=== PATIENT | female | born 2005 | race Caucasian/White ===

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

== ENCOUNTER 2024-08-22 17:16 | Emergency (ER) | payer BC, SELFPAY ==
[2024-08-22 17:16] VITALS: BP 150/78; PULSE 80; RESP 16; TEMP 36.8; O2SAT 99; BMI 26.2
--- NOTE | 2024-08-22 17:27 | EDS_ITS ---
HPI History of Present Illness Chief Complaint: Palpitations Detail of Chief Complaint: Palpitations, viral-like symptoms Informant: patient Onset/Context/Timing Onset: Today and Hours Context: Sudden Onset Timing: Intermittent Quality: Palpitations with heart rate noted to be 110s to 120. Location: Cardiovascular Current Severity: Gone Maximum Severity: Moderate Worsened by: Nothing Relieved by: Nothing Associated Symptoms Associated Symptoms: Patient also has viral-like symptoms. Narrative Narrative: Patient is a 19-year-old female. She has history of sinus pause. This was diagnosed over a year ago. Etiology is unknown. She presents because she had palpitations with heart rate noted to be between 100 1020. She was lying down when this occurred. She had no other associated symptoms i.e. orthostatic, pain or shortness of breath. Patient does endorse mild cough. She also endorses myalgias and some mild congestion. She denies contact with anyone's been ill. Last normal menstrual period was July 25. She is no longer on control pills. She denies breast tenderness, frequency. Prior similar symptoms: Yes Recent Illness/Hospitalization: No [facility] Medical History Sinus pause Home Medications ?Medication ?Instructions ?Recorded ?Last Taken ?Type famotidine 20 mg tablet mg 07/21/23 Unknown History norelgestromin 150 mcg-e.estradiol patch 07/21/23 Unknown History 35 mcg/24 hr weekly transderm patch (Xulane) ondansetron 4 mg disintegrating mg 07/21/23 Unknown History tablet Allergy/AdvReac Type Severity Reaction Status Date / Time No Known Allergies Allergy Verified 08/22/24 17:17 Social History (Updated 08/22/24 @ 17:[address] Cheng Ovalle MD) household members: significant other Smoking Status: Current every day smoker tobacco type: e-cigarettes substance use type: does not use ROS ROS ED Constitutional Constitutional ED: Denies chills Eyes Eyes: Denies blurry vision or change in vision ENT ENT ED: Reports sore throat and other Details: Sore throat noted by nurse and documented on triage assessment. ; Denies ear pain or rhinorrhea Cardiovascular Cardiovascular: Reports palpitations and racing heartbeat; Denies chest pain Respiratory/Chest Respiratory/Chest: Reports cough; Denies dyspnea, dyspnea on exertion or sputum Gastrointestinal Gastrointestinal: Reports nausea; Denies abdominal pain, diarrhea or vomiting Genitourinary Genitourinary ED: Reports LMP (females 10-50) Details: Comment: (July 25.); Denies dysuria, hematuria or urinary frequency Musculoskeletal Musculoskeletal: Reports myalgias; Denies arthralgias, back pain or neck pain Integumentary Denies rash Neurologic Neurologic: Denies headache(s) Hematologic/Lymphatic Hematologic/Lymphatic: Reports systems reviewed and no addt'l complaints, except as documented EXAM Physical Exam Const Vital Signs: 08/22/24 17:16 08/22/24 17:34 Temperature 98.2 F Temperature Source Oral Pulse Rate 80 Respiratory Rate 16 Respiratory Effort Normal Non-Labored Blood Pressure 150/78 H Blood Pressure Mean 102 Pulse Ox 99 Oxygen Delivery Method Room Air Positive well nourished and well developed General Appearance ED: well developed and NAD; Negative for cyanotic, diaphoretic or pallor HEENT HEENT Narrative: Head is atraumatic normocephalic. Ears normal. External auditory canals normal. TMs are normal. Nares patent. Posterior pharynx erythema or exudate. Uvula midline. No deviation with protrusion. Eyes PERRL and EOMs intact bilaterally General Eye ED: Negative for pale conjunctiva or scleral icterus Neck no lymphadenopathy, supple and no JVD Chest Wall inspection of chest normal and palpation of chest normal Chest Narrative: There is a marine noted above her left breast. This is due to the monitor patch she was wearing. Resp normal respiratory effort and clear to auscultation bilaterally Cardio regular rate, regular rhythm, S1 normal heart sound, S2 normal heart sound and no murmurs GI normal to inspection, nondistended, normoactive bowel sounds, non-tender, non- distended and no masses; Negative for hepatosplenomegaly Extremity normal to inspection General Extremety ED: Negative for edema or tenderness General Extremity: Negative for edema Neuro oriented x3 and CN's II-XII intact bilaterally Sensorium / Orientation: alert Psych mental status grossly normal Skin no rashes or lesions noted, no wounds and skin turgor normal General Skin Exam: Negative for jaundice or pallor MDM MDM MDM Narrative Medical decision making narrative: Patient presents with palpitations. This may represent PAT, anxiety reaction. Will place patient on monitor and determine if patient has narrow white count plexus. Also to determine she is in a sinus mechanism and if she has any ectopy or evidence of dysrhythmia. BMP was obtained to assess renal function and electrolytes and specifically potassium. CBC to rule out anemia since she appears pale. Since there was no chest pain shortness of breath troponin was not obtained nor was an EKG. Lab Data Attestation: I reviewed the patient's lab results. Lab results narrative: Basic metabolic panel is unremarkable. Chloride is slightly elevated. Labs: Laboratory Results - last 24 hr 08/22/24 17:40 Sodium 140 Potassium 3.5 Chloride 108 H Carbon Dioxide 25.0 Anion Gap 7 BUN 10 Creatinine 0.68 Estim Creat Clear Calc 107.56 Est GFR (MDRD) Af Amer 140 Est GFR (MDRD) Non-Af 116 BUN/Creatinine Ratio 14.6 Glucose 106 Calcium 8.8 Radiography Chest X-Ray - ED: 2 View, Read by ED Physician (Independently interpreted by me as negative at 1752.), Normal, Heart, Lungs, Mediastinum, Bony Structures and No Acute Disease EKG Initial EKG: Attestation: I personally reviewed and interpreted this EKG as follows: Interpretation: Sinus Rhythm (The EKG is unremarkable. Patient has a normal sinus rhythm rate of 75. AL interval is on a 58 ms. QRS duration 84 ms. QT durations 174 ms. [place] to the right. There is no ischemic changes. There is a premature atrial beat noted.) Treatment and Re-Evaluation :: Patient and significant other were informed of results. Plan is to discharge to home with appropriate home-going structures. Discharge Plan Triage Chief Complaint: Palpitations ED Provider: Cheng Ovalle Dx/Rx/DC Orders Clinical Impression: Tachycardia, Cough Instructions: ED About Arrhythmias, ED Viral Syndrome (Adult) Prescriptions: No Action famotidine 20 mg tablet Patient Comments: TAKE 1 TABLET BY MOUTH EVERY DAY AT BEDTIME NEEDED ondansetron 4 mg tablet,disintegrating Patient Comments: TAKE 1 TABLET BY MOUTH EVERY 8 HOURS NEEDED Xulane 150-35 mcg/24 hr patch weekly Patient Comments: APPLY 1 PATCH DIRECTED ONE TIME A WEEK. USE PATCH CONTINUOUSLY. NO INACTIVE WEEK. Primary Care Provider: Kathi Bernal NP Referrals: Kathi Bernal NP, TUBE ROLLER-C [Primary Care Provider] - 1-2 Weeks Print Language: Luxembourger Disposition Disposition: Home, Self Care
--- NOTE | 2024-08-22 17:35 | EKG12_ITS ---
Test Reason : palps Blood Pressure : */* mmHG Vent. Rate : 75 BPM Atrial Rate : 75 BPM P-R Int : 158 ms QRS Dur : 84 ms QT Int : 374 ms P-R-T Axes : 54 90 66 degrees QTcB Int : 417 ms Normal sinus rhythm Rightward axis Borderline ECG Confirmed by Sean Corea ([id number]), field map editor MILADY BULLARD ([id number]) on 08/23/2024 10:44:51 AM Referred By: Confirmed By: Sean Corea
--- NOTE | 2024-08-22 17:42 | RAD_ITS ---
EXAM: XR CHEST, 2 VIEWS CLINICAL INDICATION: cough TECHNIQUE: Frontal and lateral views of the chest. COMPARISON: 10/22/2023 FINDINGS: LUNGS AND PLEURAL SPACES: Unremarkable. No consolidation or edema. No pneumothorax. No effusion. HEART: Unremarkable. Cardiac silhouette not enlarged. MEDIASTINUM: Central airways and mediastinal contour are unremarkable. BONES/JOINTS: Unremarkable. No acute fracture. SOFT TISSUES: Unremarkable. RAD/Chest PA and Lateral IMPRESSION: No radiographic evidence of acute cardiopulmonary disease. Electronically Signed: Arthur Addison MD at 18:28 EST ,
[2024-08-22 18:06] LABS: Anion Gap 7 (5-15); BUN 10 mg/dL (7-18); BUN/Creat Ratio 14.6 RATIO (10-20); Calcium,Total 8.8 mg/dL (8.5-10.1); Chloride 108 mmol/L (98-107); Creatinine, Serum 0.68 mg/dL (0.55-1.02); EST Glomerular Filtration Rate 116 mL/min (>60); Est Glom Filt Rate - Afr Amer 140 mL/min (>60); Estimated Creatinine Clearance 107.56 ml/min; Glucose 106 mg/dL (74-106); Potassium 3.5 mmol/L (3.5-5.1); Sodium Level 140 mmol/L (136-145)
[2024-08-22 18:26] VITALS: PULSE 83
[2024-08-22 18:32] VITALS: BP 150/78; PULSE 83; RESP 16; TEMP 36.8; O2SAT 99
== END 2024-08-22 18:32 | disposition home or self-care (01) ==
PROVIDERS: Emergency Provider Emergency Medicine; PCP Nurse Practitioner Primary Care; Visit Provider Emergency Medicine
DX: R00.0 Tachycardia, unspecified (principal); R05.9 Cough, unspecified; I49.40 Unspecified premature depolarization; M79.10 Myalgia, unspecified site; R09.81 Nasal congestion; F17.290 Nicotine dependence, other tobacco product, uncomplicated
CPT/HCPCS: 71046; 80048; 93005; 99284; A4216

== ENCOUNTER 2024-09-04 13:57 | Emergency (ER) | payer BC, SELFPAY ==
[2024-09-04 13:57] VITALS: BP 120/81; PULSE 67; RESP 15; TEMP 36.5; O2SAT 99; BMI 26.3
--- NOTE | 2024-09-04 14:50 | EDS_ITS ---
HPI History of Present Illness Chief Complaint: Headache Narrative Narrative: Patient is a 19-year-old female past medical history of sinus pause, depression who presents to the emergency department with a chief complaint of headache. Patient states that she developed a headache on Friday and Friday was gradual onset. Patient denies any head injury or trauma. Patient states that she has not had to take anything for headache. She states that her headache is currently a 6 out of 10 and has remained this for the last several days. Patient states that today she came in because she felt weak and dizzy.. Patient feels like she is confused as well. Denies any recent sick contacts. [facility] Medical History Sinus pause Home Medications ?Medication ?Instructions ?Recorded ?Last Taken ?Type famotidine 20 mg tablet mg 07/21/23 Unknown History norelgestromin 150 mcg-e.estradiol patch 07/21/23 Unknown History 35 mcg/24 hr weekly transderm patch (Xulane) ondansetron 4 mg disintegrating mg 07/21/23 Unknown History tablet fluoxetine 40 mg capsule 40 mg PO DAILY 09/04/24 Unknown History Allergy/AdvReac Type Severity Reaction Status Date / Time No Known Allergies Allergy Verified 09/04/24 13:57 Social History household members: significant other Smoking Status: Current every day smoker tobacco type: e-cigarettes substance use type: does not use ROS ROS ED ROS Narrative Constitutional: Complains of headache as noted above denies any lightheadedness fevers or chills Eyes: Complains of blurry vision denies double vision Cardiovascular: Denies chest pain or palpitations Respiratory: Denies coughing wheezing shortness of breath Abdomen: Denies abdominal pain nausea vomit diarrhea : Denies painful urination, hematuria, or polyuria Neurological: Complains of generalized weakness denies numbness or tingling Musculoskeletal: Denies back pain Skin: Denies rashes or lesions EXAM Physical Exam Narrative Exam Narrative: General: Patient lying in bed rest comfortably did not appear to be acute distress Head: Atraumatic, normocephalic Eyes: PERRL bilateral, EOMI bilateral, no conjunctival injection noted, no vertical or horizontal nystagmus noted on exam Neck: Soft, supple, trachea midline Cardiovascular: Regular rate and rhythm no murmurs gallops rubs noted Respiratory: Clear to auscultation bilaterally no rales rhonchi or wheezes noted Abdomen: Soft, nondistended, nontender to palpation, bowel sounds present x 4 Extremities: +5/5 strength noted in the bilateral upper and lower extremities, no pedal edema noted on exam, radial pulses +2/4 in the bilateral extremities Neurological: Patient following commands knew that she was at [facility] year is 2023. She completed finger-nose test bilaterally without any difficulty. NIH is 0 GCS 15 Skin: Warm, dry, intact Const Vital Signs: 09/04/24 13:57 Temperature 97.7 F L Temperature Source Temporal Pulse Rate 67 Respiratory Rate 15 Blood Pressure 120/81 H Blood Pressure Mean 94 Pulse Ox 99 Oxygen Delivery Method Room Air MDM MDM MDM Narrative Medical decision making narrative: Patient is a 19-year-old female who presents to the emergency department chief complaint of headache, generalized weakness, confusion and dizziness. Patient will have a workup performed here on the differential diagnose includes but not limited to intracranial hemorrhage, migraine headache, complex migraine, . Once workup is obtained reviewed she will be reevaluated. Patient be given IV fluids, Reglan and Zofran. Patient CBC reviewed and showed no evidence leukocytosis white blood count normal at 5.7, hemoglobin stable 12.4, platelet count normal at 363. Patient's CMP is pending. As well as test. On reevaluation the patient she states that she feels much improved and does not want to wait on any other results and is refusing her head CT. Patient states that all her symptoms resolved with the medications prescribed here. Patient ambulated here without any difficulty. Patient took her own IV out here in the emergency department. Patient was advised to return with worsening symptoms or any other concerns. She was advised follow-up with her primary care physician. She is agreeable this plan all question concerns answered she is discharged home in a stable condition. She was advised to rotate Tylenol and ibuprofen for her headache control. Lab Data Labs: Laboratory Results - last 24 hr 09/04/24 14:50 WBC 5.7 RBC 3.95 L Hgb 12.4 Hct 37.0 MCV 93.7 MCH 31.4 MCHC 33.5 RDW Std Deviation 43.8 RDW Coeff of Joycelyn 12.6 Plt Count 363 MPV 8.5 Immature Gran % (Auto) 0.500 Neut % (Auto) 62.1 Lymph % (Auto) 28.9 [place] % (Auto) 6.7 Eos % (Auto) 0.9 Baso % (Auto) 0.9 Absolute Neuts (auto) 3.5 Absolute Lymphs (auto) 1.65 Nucleated RBC % 0 Discharge Plan Triage Chief Complaint: Headache ED Provider: Jose Banegas Dx/Rx/DC Orders Clinical Impression: Headache Instructions: ED Headache Unspecified Prescriptions: No Action famotidine 20 mg tablet Patient Comments: TAKE 1 TABLET BY MOUTH EVERY DAY AT BEDTIME NEEDED ondansetron 4 mg tablet,disintegrating Patient Comments: TAKE 1 TABLET BY MOUTH EVERY 8 HOURS NEEDED Xulane 150-35 mcg/24 hr patch weekly Patient Comments: APPLY 1 PATCH DIRECTED ONE TIME A WEEK. USE PATCH CONTINUOUSLY. NO INACTIVE WEEK. fluoxetine 40 mg capsule 40 mg PO DAILY Primary Care Provider: Kathi Bernal NP Referrals: Kathi Bernal NP, RECORD PRESS SUPERVISOR-C [Primary Care Provider] - Activity Restrictions/Additional Instructions: Return with worsening symptoms or any other concerns. Use Tylenol and ibuprofen for headache control. Remain well-hydrated. Print Language: Yakut Disposition Disposition: Home, Self Care
[2024-09-04] MEDS: Metoclopramide 10 MG/2 ML Vial IV (14:51)
[2024-09-04] MEDS: Acetaminophen 500 MG Tablet 1000 MG PO (14:51)
[2024-09-04] MEDS: 0.9% Normal Saline (1000mL) 1,000 ML 999 ML IV (14:58)
[2024-09-04 15:07] LABS: Absolute Lymphocyte Count 1.65 X10^3/uL (0.83-4.51); Absolute Neutrophil Count 3.5 X10^3/uL (2.0-7.7); Basophil# 0.05 X10^3/uL; Basophil% 0.9 % (0-1); Eosinophil# 0.05 X10^3/uL; Eosinophils% 0.9 % (0-5); Hemoglobin 12.4 g/dL (12.0-15.0); Lymphocyte # 1.65 X10^3/ul (0.83-4.51); Lymphocyte % 28.9 % (19-41); Mean Corp Hgb Conc 33.5 g/dL (32-36); Mean Corpuscular Hgb 31.4 pg (27.0-32.0); Mean Corpuscular Volume 93.7 fL (81-99); Mean Platelet Vol. 8.5 fl (6.2-12.0); Monocyte# 0.38 X10^3/uL; Monocyte% 6.7 % (0-10); NRBC Flagged by Analyzer 0 % (0-5); Neutrophil # 3.54 X10^3/uL (2.7-7.7); Neutrophil % 62.1 % (47-70); Platelet Count 363 K/mm3 (150-450); RBC Distribution Width CV 12.6 % (11.6-14.6); RBC Distribution Width SD 43.8 fl (35.1-43.9); Red Blood Count 3.95 M/mm3 (4.2-5.4); White Blood Count 5.7 K/mm3 (4.4-11.0)
--- NOTE | 2024-09-04 15:23 | ED.RN ---
Pt pulled out her IV and her SO came out and stated it fell out, yet the IV tape was perfectly balled up and she was applying gauze. Pt SO requested to leave about 15 minutes ago and this RN informed the doctor, the patient did not want to wait for the doctor.
[2024-09-04 15:28] LABS: ALB/GLOB Ratio 1.3 RATIO (0.9-2.4); AST(SGOT) 18 U/L (15-37); Alanine Aminotransfer ALT/SGPT 27 U/L (13-56); Alkaline Phosphatase 75 U/L (45-117); Anion Gap 3 (5-15); BUN 10 mg/dL (7-18); BUN/Creat Ratio 16.1 RATIO (10-20); Calcium,Total 8.9 mg/dL (8.5-10.1); Chloride 108 mmol/L (98-107); Creatinine, Serum 0.62 mg/dL (0.55-1.02); EST Glomerular Filtration Rate 130 mL/min (>60); Est Glom Filt Rate - Afr Amer 157 mL/min (>60); Estimated Creatinine Clearance 118.22 ml/min; Globulin 3.1 g/dL (2.2-4.2); Glucose 81 mg/dL (74-106); Protein, Total 7.1 g/dL (6.4-8.2); Sodium Level 139 mmol/L (136-145)
== END 2024-09-04 15:25 | disposition home or self-care (01) ==
PROVIDERS: Emergency Provider Emergency Medicine; PCP Nurse Practitioner Primary Care; Visit Provider Emergency Medicine
DX: R51.9 Headache, unspecified (principal); R53.1 Weakness; R41.0 Disorientation, unspecified; R42 Dizziness and giddiness; Z53.20 Procedure and treatment not carried out because of patient's decision for unspecified reasons; F32.A Depression, unspecified; F17.290 Nicotine dependence, other tobacco product, uncomplicated; Z79.899 Other long term (current) drug therapy
CPT/HCPCS: 80053; 85025; 96374; 99283; J7030; A4216

== ENCOUNTER 2025-01-06 12:40 | Emergency (ER) | payer BC, SELFPAY ==
[2025-01-06 12:42] VITALS: BP 124/69; PULSE 129; RESP 16; TEMP 36.3; O2SAT 100; BMI 31.2
--- NOTE | 2025-01-06 12:45 | EX.ED.GENINJ ---
HPI History of Present Illness Chief Complaint: Nausea/Vomiting/Diarrhea [facility] Medical History Sinus pause Home Medications ?Medication ?Instructions ?Recorded ?Last Taken ?Type famotidine 20 mg tablet mg 07/21/23 Unknown History ondansetron 4 mg disintegrating mg 07/21/23 Unknown History tablet fluoxetine 40 mg capsule 80 mg PO DAILY 09/04/24 Unknown History ondansetron HCl 4 mg tablet 4 mg PO Q8H 5 days #15 tabs 01/06/25 Unknown Rx Allergy/AdvReac Type Severity Reaction Status Date / Time No Known Allergies Allergy Verified 01/06/25 12:46 Social History household members: significant other Smoking Status: Current every day smoker tobacco type: e-cigarettes substance use type: does not use EXAM Physical Exam Const Vital Signs: 01/06/25 12:42 01/06/25 13:16 Temperature 97.4 F L Temperature Source Temporal Pulse Rate 129 H 74 Respiratory Rate 16 16 Blood Pressure 124/69 H 98/55 L Blood Pressure Mean 87 69 Pulse Ox 100 99 Oxygen Delivery Method Room Air MDM MDM MDM Narrative Medical decision making narrative: HISTORY OF PRESENT ILLNESS: 19 female presents with nausea/vomiting/diarrhea. Patient states REVIEW OF SYSTEMS: Pertinent positives: Nausea vomiting diarrhea Pertinent negatives: Hematemesis, melena, chest pain, shortness of breath, syncope PHYSICAL EXAM: Nursing triage notes reviewed, Vital signs reviewed Constitutional: please see mdm HENT: MMM Eyes: Pupils equal round and reactive to light, Extraocular muscles intact Neck: No stridor, no JVD, full neck ROM Lungs: Clear to auscultation, No wheezing or rales. No increased work of breathing, no conversational dyspnea, no accessory muscle use, no nasal flaring. No respiratory distress noted Heart: Regular rate and rhythm, No murmurs, No rubs and No gallops, 2+ distal pulses (radial, femoral, posterior tibial) in all extremities Abdomen: Soft, there is no tenderness, rigidity, rebound or guarding, no obvious peritoneal signs, no palpable pulsatile abdominal masses, no auscultated abdominal bruit : No CVAT Extremities: No edema Neuro: No new focal neurological deficits, cranial nerves II through XII intact, 5/5 strength in all present extremities. Intact sensation to light touch in all present extremities, 2+ reflexes bilateral patella tendons. Skin: No rash or lesions noted MEDICAL DECISION MAKING: Chief Complaint: Nausea vomiting diarrhea External records reviewed: Reviewed prior ED encounters, allergy Factors affecting care: none Social determinants of health: none History obtained from others: significant other Consults: none MDM Narrative: The patient was initially tachycardic otherwise afebrile and nontoxic-appearing. Exam with a benign abdomen. I considered the following differential diagnosis: Dehydration, , electrolyte disturbance, viral gastroenteritis The patient's abdominal exam was soft, benign with no peritoneal signs. Low suspicion for acute surgical pathology in the abdomen ALL IMAGES (IF OBTAINED) HAVE BEEN PERSONALLY REVIEWED AND INTERPRETED BY MYSELF. CBC with leukocytosis suggestive of systemic inflammation, no anemia or thrombocytopenia CMP without evidence of acute kidney injury, significant electrolyte abnormality, anion gap to suggest end organ hypo-perfusion, no evidence of metabolic acidosis with a normal bicarbonate, no evidence of hepatobiliary obstructive pathology. Urine test negative After 1 L IV fluid, 4 mg IV Zofran and 20 mg IV Pepcid the patient noted marked improvement in nausea and vomiting. She is able tolerate p.o. Her heart rate improved from 1 24-74 she is likely 7 from a viral gastroenteritis. I gave Zofran for home-going. Strict return precautions were discussed. The patient and/or family, caregivers express understanding. The patient and/or family, caregivers agrees with the plan. Shared decision making: I will have a discussion with the patient and or visitors regarding risk/benefits of further testing or admission. They will be made aware of of the risk/benefits inherent in this decision they will be given the opportunity to voice understanding. Total critical care time today provided was at least 0 minutes. This excludes separately billable procedures. Critical care time (if documented) is secondary to the patient having high probability of clinically significant/life threatening deterioration in the patient's condition which required my urgent intervention. Impression: 1. Nausea vomiting and diarrhea 2. Dehydration Dispo: Discharge home This note was generated with [employer] dictation software. It may contain incorrect words, spelling, and punctuation that were not noted in review of the chart prior to signing. Lab Data Labs: Laboratory Results - last 24 hr 01/06/25 01/06/25 13:05 13:23 WBC 12.8 H RBC 4.37 Hgb 13.6 Hct 40.3 MCV 92.2 MCH 31.1 MCHC 33.7 RDW Std Deviation 45.0 H RDW Coeff of Joycelyn 13.2 Plt Count 343 MPV 8.3 Immature Gran % (Auto) 0.800 Neut % (Auto) 92.9 H Lymph % (Auto) 2.9 L [place] % (Auto) 2.5 Eos % (Auto) 0.6 Baso % (Auto) 0.3 Absolute Neuts (auto) 11.9 H Absolute Lymphs (auto) 0.37 L Nucleated RBC % 0 Sodium 139 Potassium 4.1 Chloride 103 Carbon Dioxide 21.9 Anion Gap 14 BUN 13 Creatinine 0.61 L Estim Creat Clear Calc 130.82 Est GFR (MDRD) Non-Af 131 BUN/Creatinine Ratio 21.8 H Glucose 106 H Calcium 9.3 Total Bilirubin 0.72 AST 44 H ALT 48 H Alkaline Phosphatase 108 H Total Protein 7.8 Albumin 4.5 Globulin 3.2 Albumin/Globulin Ratio 1.4 Lipase 22 Urine Test Negative Discharge Plan Triage Chief Complaint: Nausea/Vomiting/Diarrhea ED Provider: Wild Wu Dx/Rx/DC Orders Instructions: ED Diet Vomiting Diarrhea Prescriptions: New ondansetron HCl 4 mg tablet 4 mg PO Q8H 5 Days Qty: 15 0RF No Action famotidine 20 mg tablet Patient Comments: TAKE 1 TABLET BY MOUTH EVERY DAY AT BEDTIME NEEDED ondansetron 4 mg tablet,disintegrating Patient Comments: TAKE 1 TABLET BY MOUTH EVERY 8 HOURS NEEDED fluoxetine 40 mg capsule 80 mg PO DAILY Stand Alone Forms: ED Work / School Excuse Primary Care Provider: Kathi Bernal NP Referrals: Kathi Bernal NP, ORCHESTRA MUSICIAN-C [Primary Care Provider] - Activity Restrictions/Additional Instructions: Thank you for trusting us with your care today! Your labs are reassuring. No sign of significant dehydration or kidney dysfunction. Please take Zofran as needed for nausea vomit control at home. Please take Tylenol (2 pills, 650 mg), ibuprofen (2 pills, 400 mg) every 6 hours as needed for pain and fever control. Please return to the emergency department if your symptoms change or worsen. Please follow with your primary care physician for further outpatient evaluation and management. Print Language: Lithuanian Disposition Disposition: Home, Self Care
--- NOTE | 2025-01-06 12:52 | EKG12_ITS ---
Test Reason : N/V/D Blood Pressure : */* mmHG Vent. Rate : 118 BPM Atrial Rate : 118 BPM P-R Int : 126 ms QRS Dur : 80 ms QT Int : 326 ms P-R-T Axes : 30 91 4 degrees QTcB Int : 456 ms Sinus tachycardia Rightward axis Borderline ECG Confirmed by ALPHONSE STACK, MARTELL ([id number]), news video editor GERI FERNANDO ([id number]) on 01/07/2025 8:00:35 AM Referred By: Wild Wu Confirmed By: MARTELL CUNHA MD
[2025-01-06] MEDS: 0.9% Normal Saline (1000mL) 1,000 ML 999 ML IV (13:06)
[2025-01-06] MEDS: Ondansetron 4 MG/2 ML Vial IV (13:07)
[2025-01-06] MEDS: Famotidine 200 MG/20 ML MDV 20 MG in 0.9% Normal Saline (Pres. free 8 ML 300 MG IV (13:14)
[2025-01-06 13:16] VITALS: BP 98/55; PULSE 74; RESP 16; O2SAT 99
[2025-01-06 13:25] LABS: Absolute Lymphocyte Count 0.37 X10^3/uL (0.83-4.51); Absolute Neutrophil Count 11.9 X10^3/uL (2.0-7.7); Basophil# 0.04 X10^3/uL; Basophil% 0.3 % (0-1); Eosinophil# 0.08 X10^3/uL; Eosinophils% 0.6 % (0-5); Hematocrit 40.3 % (37-47); Hemoglobin 13.6 g/dL (12.0-15.0); Lymphocyte # 0.37 X10^3/ul (0.83-4.51); Lymphocyte % 2.9 % (19-41); Mean Corp Hgb Conc 33.7 g/dL (32-36); Mean Corpuscular Hgb 31.1 pg (27.0-32.0); Mean Corpuscular Volume 92.2 fL (81-99); Mean Platelet Vol. 8.3 fl (6.2-12.0); Monocyte# 0.32 X10^3/uL; Monocyte% 2.5 % (0-10); NRBC Flagged by Analyzer 0 % (0-5); Neutrophil # 11.92 X10^3/uL (2.7-7.7); Neutrophil % 92.9 % (47-70); POSITIVE DIFFERENTIAL YES; Platelet Count 343 K/mm3 (150-450); RBC Distribution Width CV 13.2 % (11.6-14.6); Red Blood Count 4.37 M/mm3 (4.2-5.4); White Blood Count 12.8 K/mm3 (4.4-11.0)
[2025-01-06 13:43] LABS: Internal QC Validated? YES +Cl - CLEAR BKGD; Pregnancy, Urine Negative Negative
[2025-01-06 13:50] LABS: Lipase 22 U/L (13-75)
[2025-01-06 14:11] LABS: ALB/GLOB Ratio 1.4 RATIO (0.9-2.4); AST(SGOT) 44 U/L (<=31); Alanine Aminotransfer ALT/SGPT 48 U/L (<=34); Albumin, Serum 4.5 g/dL (3.5-5.0); Alkaline Phosphatase 108 U/L (35-104); Anion Gap 14 (5-15); BUN 13 mg/dL (4-19); BUN/Creat Ratio 21.8 RATIO (10-20); Calcium,Total 9.3 mg/dL (7.6-11.0); Carbon Dioxide 21.9 mmol/L (21.0-32.0); Chloride 103 mmol/L (98-108); Creatinine, Serum 0.61 mg/dL (0.70-1.20); EST Glomerular Filtration Rate 131 (>60); Estimated Creatinine Clearance 130.82 ml/min (50-250); Globulin 3.2 g/dL (2.2-4.2); Glucose 106 mg/dL (70-99); Potassium 4.1 mmol/L (3.3-5.1); Protein, Total 7.8 g/dL (5.9-8.4); Sodium Level 139 mmol/L (133-145); Total Bilirubin 0.72 mg/dL (0.00-1.30)
== END 2025-01-06 14:58 | disposition home or self-care (01) ==
PROVIDERS: Emergency Provider Emergency Medicine; PCP Nurse Practitioner Primary Care; Referring Provider Emergency Medicine; Visit Provider Emergency Medicine
DX: R11.2 Nausea with vomiting, unspecified (principal); R19.7 Diarrhea, unspecified; E86.0 Dehydration; F17.290 Nicotine dependence, other tobacco product, uncomplicated
CPT/HCPCS: 80053; 81025; 83690; 85025; 93005; 96361; 96374; 96375; 99283; A4216; J2405